=== PATIENT | female | born 1970 | race Caucasian/White ===

== ENCOUNTER 2016-10-09 19:02 | Emergency (ER) | payer OTHER ==
[~2016-10-09] VITALS: Ht 160 cm; Wt 140.0 kg
[~2016-10-09 19:02] MED LIST: AMOXICILLIN/CL875 MG PO; AMOXICILLIN500 MG PO; ANUSOL-HC25 MG RE; CELEBREX200 MG OR; CEPHALEXIN500 MG OR; CIPRO500 MG OR; CIPROFLOXACN500 MG PO; CORTISPORIN OP7.5 ML OP; FISH OIL1360 MG OR; FLEXERIL PO; FLONASE NASAL50 MCG; LEVAQUIN500 MG OR; LEVAQUIN750 MG PO; MAREPA1000 MG OR; METFORMIN500 MG PO; METHIMAZOLE10 MG PO; METOPROL TAR25 MG PO; METOPROL TAR50 MG OR; MULTI VIT OR; NAPROSYN500 MG OR; NAPROXEN500 MG PO; NO MEDS; PAROXETINE20 MG PO; PREDNISONE20 MG PO; PRO-BIOTIC OR; SEA-OMEGA300 MG OR; TAPAZOLE10 MG OR; ULTRAM50 MG OR; ZANAFLEX4 M2 PO; ZITHROMAX250 MG PO
[2016-10-09 19:49] LABS: HEMOGLOBIN 12.6 g/dl (12.0-16.0); IMMATURE GRANULOCYTES 0.4 % (0.0-1.0); MEAN CELL VOLUME 85.9 fL CALC (80.0-100.0); MEAN CORPUSCULAR HGB 30.1 pG CALC (26.0-32.0); NEUT# 6.03 thou/uL (2.00-7.15); RED BLOOD COUNT 4.19 mill/uL (4.20-5.60); RED CELL DISTRI WIDTH 12.3 % (11.5-15.5)
[2016-10-09 20:13] LABS: ALKALINE PHOSPHATASE 85 u/l (38-126); ANION GAP 14 (6-22 (CALC)); BILIRUBIN, TOTAL 0.4 mg/dL (0.0-1.4); BUN 12 mg/dL (7-17); BUN/CREATININE RATIO 21 (12-20 (CALC)); CALCIUM 9.1 mg/dL (8.4-10.2); CARBON DIOXIDE 24 mmol/l (22-30); CHLORIDE 105 mmol/l (95-108); CREATININE 0.6 mg/dL (0.5-1.0); GFR > 60 ML/MIN (>=60 (CALC)); GFR FOR AFR.AMER. > 60 ML/MIN (>=60 (CALC)); GLUCOSE 100 mg/dL (65-105); POTASSIUM 3.5 mmol/l (3.5-5.1); SGOT/AST 26 u/l (14-36); SGPT/ALT 37 u/l (9-52); SODIUM 140 mmol/l (137-146); TOTAL PROTEIN 6.9 g/dL (6.3-8.2)
[2016-10-09] MEDS ORDERED: NAPROSYN500 MG PO (22:32)
[2016-10-09 23:21] VITALS: BP 130/69
== END 2016-10-09 23:22 | disposition home or self-care (01) | DRG 605 ==
LOC: ED 19:02
PROVIDERS: Emergency Medicine
DX: S20.211A Contusion of right front wall of thorax, initial encounter (principal); F41.1 Generalized anxiety disorder; S30.1XXA Contusion of abdominal wall, initial encounter; V43.52XA Car driver injured in collision with other type car in traffic accident, initial encounter; W22.11XA Striking against or struck by driver side automobile airbag, initial encounter; Y92.488 Other paved roadways as the place of occurrence of the external cause; R00.0 Tachycardia, unspecified; R06.82 Tachypnea, not elsewhere classified
CPT/HCPCS: Q9967

== ENCOUNTER 2016-10-16 01:24 | Emergency (ER) | payer OTHER ==
[~2016-10-16] VITALS: Ht 160 cm; Wt 126.4 kg
[~2016-10-16 01:24] MED LIST changes: +NAPROSYN500 MG PO
[2016-10-16] MEDS ORDERED: METOPROLOL50 M1 PO (01:37)
[2016-10-16 03:39] VITALS: BP 138/90
== END 2016-10-16 03:39 | disposition home or self-care (01) | DRG 556 ==
LOC: ED 01:24
DX: M79.604 Pain in right leg (principal); R20.8 Other disturbances of skin sensation

== ENCOUNTER 2017-01-23 21:40 | Observation (INO) | payer SELFPAY ==
[~2017-01-23] VITALS: Ht 160 cm; Wt 60.0 kg
[~2017-01-23 21:40] MED LIST changes: +METOPROLOL50 M1 PO
--- NOTE | 2017-01-23 22:02 | NUR ---
PT BROUGHT STRAIGHT BACK TO ER ROOM 14 VIA WC. EKG COMPLETE. PT CHANGED INTO GOWN.
[2017-01-23 22:24] LABS: HEMATOCRIT 37.2 % (37.0-47.0); HEMOGLOBIN 12.8 g/dl (12.0-16.0); IMMATURE GRANULOCYTES 0.3 % (0.0-1.0); MEAN CELL VOLUME 88.6 fL CALC (80.0-100.0); MEAN CORPUSCULAR HGB 30.5 pG CALC (26.0-32.0); MEAN CORPUSCULAR HGB CONC 34.4 g/L CALC (32.0-36.0); NEUT# 3.66 thou/uL (2.00-7.15); RED BLOOD COUNT 4.2 mill/uL (4.20-5.60); RED CELL DISTRI WIDTH 12.3 % (11.5-15.5)
[2017-01-23 22:37] LABS: ALBUMIN 4.4 g/dL (3.2-5.0); ALKALINE PHOSPHATASE 69 u/l (38-126); ANION GAP 15 (6-22 (CALC)); BILIRUBIN, TOTAL 0.5 mg/dL (0.0-1.4); BUN 11 mg/dL (7-17); BUN/CREATININE RATIO 15 (12-20 (CALC)); CALCIUM 9.5 mg/dL (8.4-10.2); CARBON DIOXIDE 26 mmol/l (22-30); CHLORIDE 104 mmol/l (95-108); CREATININE 0.7 mg/dL (0.5-1.0); GFR > 60 ML/MIN (>=60 (CALC)); GFR FOR AFR.AMER. > 60 ML/MIN (>=60 (CALC)); GLUCOSE 145 mg/dL (65-105); POTASSIUM 3.5 mmol/l (3.5-5.1); SGOT/AST 44 u/l (14-36); SGPT/ALT 69 u/l (9-52); SODIUM 142 mmol/l (137-146)
[2017-01-23 22:50] LABS: MYOGLOBIN 32 ng/mL (0 - 62)
--- NOTE | 2017-01-23 22:52 | NUR ---
PT STATES CHEST PAIN GONE JUST HAS LEFT SHOULDER PAIN.
[2017-01-23 22:57] LABS: URINE BILIRUBIN - DIPSTICK NEGATIVE (NEGATIVE); URINE BLOOD DIPSTICK NEGATIVE (NEGATIVE); URINE CLARITY SLIGHT CLOUDY; URINE COLOR YELLOW; URINE GLUCOSE - DIPSTICK NEGATIVE (NEGATIVE); URINE KETONE NEGATIVE (NEGATIVE); URINE LEUK ESTERASE NEGATIVE (NEGATIVE); URINE NITRITE - DIPSTICK NEGATIVE (Negative); URINE PROTEIN - DIPSTICK NEGATIVE (NEG-TRACE); URINE SPECIFIC GRAVITY 1.015; URINE UROBILINOGEN - DIPSTICK 0.2 E.U./dL (0.2)
[2017-01-23 23:05] LABS: BARBITURATES NEGATIVE (NEGATIVE); COCAINE NEGATIVE (NEGATIVE); METHADONE NEGATIVE (NEGATIVE); OXCYCODONE NEGATIVE (NEGATIVE); TETRAHYDROCANNABIONOL NEGATIVE (NEGATIVE); TRICYLIC ANTIDEPRESSANTS NEGATIVE (NEGATIVE)
[2017-01-23 23:08] LABS: TSH, 3RD GENERATION < 0.02 uIU/mL (0.47 - 4.68)
--- NOTE | 2017-01-23 23:50 | NUR ---
SON AT BEDSIDE, PT CALM NOW., B/P DOWN.
[2017-01-23] MEDS ORDERED: METHIMAZOLE5 MG PO (23:55)
--- NOTE | 2017-01-24 00:35 | NUR ---
TRIED TO GIVE REPORT NURSE WILL CALL BACK
[2017-01-24 00:40] VITALS: BP 149/92
--- NOTE | 2017-01-24 01:29 | NUR ---
REPORT GIVEN TO DIEGO CASILLAS.
--- NOTE | 2017-01-24 01:40 | NUR ---
FROM ER TO [facility] ROOM 262, VIA W/C ACCOMPANIED BY DIEGO LEBLANC. PT ALERT AND ORIENTED X3, STEADY GAIT NOTED WHEN AMBULATED TO STANDING SCALE THEN TO BED, DENIES PAIN OR OTHER DISCOMFORT, NO DISTRESS NOTED, SKIN WARM AND DRY, ACYANOTIC, LUNGS CLEAR BILATERALLY ON AUSCULTATION, RESP ARE EVEN AND UNLABORED, AFEBRILE, VSS, TELE IN PLACE, REFUSED TEDHOSE, PT IS REQUESTING COPY OF ALL LABS RESULTS, EXPLAINED THAT NEEDS TO SIGN A RELEASE FORM AND GET THEM FROM RECORDS DEPT, VOICES UNDERSTANDING, SAFETY MEASURES IN PLACE, STATES HAS BEEN OUT OF MEDICATIONS FOR MONTHS D/T NO INSURANCE, LIVES WITH AND DAUGHTER, CALL ACUNA IN PLACE WILL CONTINUE TO MONITOR.
--- NOTE | 2017-01-24 01:40 | NUR ---
Admission Note Report Given to: DIEGO CASILLAS Transported by: X Wheelchair Stretcher Transported with: X Nurse Transporter X Patent IV O2 X Print Graphic Designer
[2017-01-24 04:10] VITALS: BP 119/54
--- NOTE | 2017-01-24 06:00 | NUR ---
PT RESTING QUIETLY IN BED, DENIES CHEST PAIN, VOICES NO COMPLAINTS OR NEEDS, RESP ARE EVEN AND UNLABORED NO DISTRESS NOTED, WILL CONTINUE TO MONITOR, CALL ACUNA AT REACH.
--- NOTE | 2017-01-24 09:20 | NUR ---
ASSESSMENT IS COMPLETED: IV SITE IS FREE FROM REDNESS OR EDMEA. CONTINUE TO OBSERVE AND MONITOR.
[2017-01-24 09:23] VITALS: BP 137/81
--- NOTE | 2017-01-24 11:00 | NUR ---
IV SITE IS DISCONTINEUD CATHETER. DISCHARGE INSTRUCTIONS GIVEN AND VERBALIZED UNDERSTANDING,
--- NOTE | 2017-01-24 11:24 | NUR ---
Discharge instructions given. Patient verbalizes understanding of same. Discharged in stable condition via Wheelchair to Home with family. All belongings sent with pt.
== END 2017-01-24 11:00 | disposition home or self-care (01) | DRG 313 ==
LOC: ED 21:40 → ED-I 23:00 → ED 23:24 → MS2 23:25
PROVIDERS: Emergency Medicine; Nurse Practitioner Family; ADMIT Internal Medicine; ATTEND Internal Medicine
DX: R07.9 Chest pain, unspecified (principal); E66.01 Morbid (severe) obesity due to excess calories; I10 Essential (primary) hypertension; E05.00 Thyrotoxicosis with diffuse goiter without thyrotoxic crisis or storm; J45.909 Unspecified asthma, uncomplicated; F41.9 Anxiety disorder, unspecified; F32.9 Major depressive disorder, single episode, unspecified; E11.9 Type 2 diabetes mellitus without complications; Z91.14 Patient's other noncompliance with medication regimen; Z79.84 Long term (current) use of oral hypoglycemic drugs; Z87.891 Personal history of nicotine dependence
CPT/HCPCS: G0378

== ENCOUNTER 2017-06-25 21:33 | Emergency (ER) | payer BC ==
[~2017-06-25] VITALS: Ht 160 cm; Wt 136.3 kg
[~2017-06-25 21:33] MED LIST changes: +METHIMAZOLE5 MG PO
[2017-06-25 22:18] LABS: HEMATOCRIT 39.8 % (37.0-47.0); HEMOGLOBIN 13.6 g/dl (12.0-16.0); IMMATURE GRANULOCYTES 0.3 % (0.0-1.0); MEAN CELL VOLUME 92.1 fL CALC (80.0-100.0); MEAN CORPUSCULAR HGB 31.5 pG CALC (26.0-32.0); MEAN CORPUSCULAR HGB CONC 34.2 g/L CALC (32.0-36.0); NEUT# 4.9 thou/uL (2.00-7.15); RED BLOOD COUNT 4.32 mill/uL (4.20-5.60); RED CELL DISTRI WIDTH 12.4 % (11.5-15.5)
[2017-06-25 22:32] LABS: ALBUMIN 4.7 g/dL (3.2-5.0); ALKALINE PHOSPHATASE 65 u/l (38-126); AMYLASE 60 u/l (30-110); ANION GAP 17 (6-22 (CALC)); BILIRUBIN, TOTAL 0.4 mg/dL (0.0-1.4); BUN 11 mg/dL (7-17); BUN/CREATININE RATIO 14 (12-20 (CALC)); CARBON DIOXIDE 24 mmol/l (22-30); CHLORIDE 108 mmol/l (95-108); CREATININE 0.8 mg/dL (0.5-1.0); GFR > 60 ML/MIN (>=60 (CALC)); GFR FOR AFR.AMER. > 60 ML/MIN (>=60 (CALC)); GLUCOSE 106 mg/dL (65-105); LIPASE 93 u/l (23-300); POTASSIUM 4.3 mmol/l (3.5-5.1); SGOT/AST 37 u/l (14-36); SGPT/ALT 45 u/l (9-52); SODIUM 145 mmol/l (137-146); TOTAL PROTEIN 7.8 g/dL (6.3-8.2)
[2017-06-25 22:41] LABS: MYOGLOBIN 24 ng/mL (0 - 62)
[2017-06-25 23:45] VITALS: BP 161/83
== END 2017-06-25 23:50 | disposition left against medical advice (07) | DRG 313 ==
LOC: ED 21:33
PROVIDERS: Emergency Medicine
DX: R07.9 Chest pain, unspecified (principal); Z91.19 Patient's noncompliance with other medical treatment and regimen

== ENCOUNTER 2017-06-30 21:16 | Emergency (ER) | payer BC ==
[~2017-06-30] VITALS: Ht 160 cm; Wt 133.8 kg
[2017-06-30 21:25] VITALS: BP 193/108
== END 2017-06-30 21:55 | disposition left against medical advice (07) | DRG 951 ==
LOC: ED 21:16 → LWOBS 21:55
DX: Z91.19 Patient's noncompliance with other medical treatment and regimen (principal)

== ENCOUNTER 2017-07-02 07:14 | Emergency (ER) | payer BC ==
[~2017-07-02] VITALS: Ht 160 cm; Wt 136.0 kg
[2017-07-02] MEDS ORDERED: PENICILLN VK500 MG PO (07:40)
[2017-07-02 08:06] LABS: HEMATOCRIT 41.9 % (37.0-47.0); HEMOGLOBIN 14.2 g/dl (12.0-16.0); IMMATURE GRANULOCYTES 0.2 % (0.0-1.0); MEAN CELL VOLUME 92.3 fL CALC (80.0-100.0); MEAN CORPUSCULAR HGB 31.3 pG CALC (26.0-32.0); MEAN CORPUSCULAR HGB CONC 33.9 g/L CALC (32.0-36.0); NEUT# 3.97 thou/uL (2.00-7.15); RED BLOOD COUNT 4.54 mill/uL (4.20-5.60); RED CELL DISTRI WIDTH 12.5 % (11.5-15.5)
[2017-07-02 08:25] LABS: ALBUMIN 4.9 g/dL (3.2-5.0); ALKALINE PHOSPHATASE 72 u/l (38-126); ANION GAP 19 (6-22 (CALC)); BILIRUBIN, TOTAL 0.8 mg/dL (0.0-1.4); BUN 12 mg/dL (7-17); BUN/CREATININE RATIO 14 (12-20 (CALC)); CARBON DIOXIDE 25 mmol/l (22-30); CHLORIDE 106 mmol/l (95-108); CREATININE 0.9 mg/dL (0.5-1.0); GFR > 60 ML/MIN (>=60 (CALC)); GFR FOR AFR.AMER. > 60 ML/MIN (>=60 (CALC)); POTASSIUM 3.8 mmol/l (3.5-5.1); SGOT/AST 37 u/l (14-36); SGPT/ALT 48 u/l (9-52); SODIUM 146 mmol/l (137-146); TOTAL PROTEIN 8.1 g/dL (6.3-8.2)
[2017-07-02] MEDS ORDERED: TORADOL PO (08:49)
[2017-07-02 09:00] VITALS: BP 166/75
== END 2017-07-02 09:00 | disposition home or self-care (01) | DRG 313 ==
LOC: ED 07:14
PROVIDERS: Emergency Medicine
DX: R07.89 Other chest pain (principal); E05.00 Thyrotoxicosis with diffuse goiter without thyrotoxic crisis or storm; E11.9 Type 2 diabetes mellitus without complications; F41.9 Anxiety disorder, unspecified; I10 Essential (primary) hypertension

== ENCOUNTER 2018-02-24 22:58 | Emergency (ER) | payer BC ==
[~2018-02-24] VITALS: Ht 160 cm; Wt 131.4 kg
[~2018-02-24 22:58] MED LIST changes: +PENICILLN VK500 MG PO; +TORADOL PO
[2018-02-25 00:02] LABS: HEMATOCRIT 41.1 % (37.0-47.0); HEMOGLOBIN 13.7 g/dl (12.0-16.0); IMMATURE GRANULOCYTES 0.2 % (0.0-5.0); MEAN CELL VOLUME 93.4 fL CALC (80.0-100.0); MEAN CORPUSCULAR HGB 31.1 pG CALC (26.0-32.0); MEAN CORPUSCULAR HGB CONC 33.3 g/L CALC (32.0-36.0); NEUT# 3.85 thou/uL (2.00-7.15); RED BLOOD COUNT 4.4 mill/uL (4.20-5.60); RED CELL DISTRI WIDTH 11.9 % (11.5-15.5)
[2018-02-25 00:14] LABS: ALBUMIN 4.5 g/dL (3.2-5.0); ALKALINE PHOSPHATASE 45 u/l (38-126); ANION GAP 13 (6-22 (CALC)); BILIRUBIN, TOTAL 0.4 mg/dL (0.0-1.4); BUN 14 mg/dL (7-17); BUN/CREATININE RATIO 16 (12-20 (CALC)); CARBON DIOXIDE 26 mmol/l (22-30); CHLORIDE 106 mmol/l (95-108); CREATININE 0.9 mg/dL (0.5-1.0); GFR > 60 ML/MIN (>=60 (CALC)); GFR FOR AFR.AMER. > 60 ML/MIN (>=60 (CALC)); POTASSIUM 4.2 mmol/l (3.5-5.1); SGOT/AST 31 u/l (14-36); SODIUM 140 mmol/l (137-146); TOTAL PROTEIN 7.8 g/dL (6.3-8.2)
[2018-02-25 00:27] LABS: MYOGLOBIN 366 ng/mL (0 - 62)
[2018-02-25 00:45] LABS: TSH, 3RD GENERATION 4.75 uIU/mL (0.47 - 4.68)
[2018-02-25] MEDS ORDERED: METHIMAZOLE10 MG PO (00:46)
[2018-02-25 01:01] VITALS: BP 130/72
== END 2018-02-25 01:01 | disposition home or self-care (01) | DRG 305 ==
LOC: ED 22:58
PROVIDERS: Emergency Medicine
DX: I10 Essential (primary) hypertension (principal); R00.2 Palpitations; R20.0 Anesthesia of skin; E11.9 Type 2 diabetes mellitus without complications; R51 Headache; E05.00 Thyrotoxicosis with diffuse goiter without thyrotoxic crisis or storm

== ENCOUNTER 2020-01-01 06:50 | Emergency (ER) | payer SELFPAY ==
[~2020-01-01] VITALS: Ht 160 cm; Wt 140.9 kg
[2020-01-01] MEDS ORDERED: METOPROLOL SUCC50 MG PO (07:41)
[2020-01-01 07:51] LABS: HEMATOCRIT 39.1 % (37.0-47.0); HEMOGLOBIN 12.5 g/dl (12.0-16.0); IMMATURE GRANULOCYTES 0.5 % (0.0-5.0); MEAN CELL VOLUME 93.8 fL CALC (80.0-100.0); NEUT# 3.43 thou/uL (2.00-7.15); RED BLOOD COUNT 4.17 mill/uL (4.20-5.60); RED CELL DISTRI WIDTH 12.7 % (11.5-15.5)
[2020-01-01 08:10] LABS: ALBUMIN 4.1 g/dL (3.2-5.0); ALKALINE PHOSPHATASE 45 u/l (38-126); ANION GAP 13 (6-22 (CALC)); BUN 15 mg/dL (7-17); BUN/CREATININE RATIO 21 (12-20 (CALC)); CARBON DIOXIDE 24 mmol/l (22-30); CHLORIDE 105 mmol/l (95-108); CPK 78 u/l (30-165); CREATININE 0.7 mg/dL (0.5-1.0); ETHYL ALCOHOL 0 mg/dl (0-30); GFR > 60 ML/MIN (>=60 (CALC)); GFR FOR AFR.AMER. > 60 ML/MIN (>=60 (CALC)); LIPASE 111 u/l (23-300); MAGNESIUM 1.9 mg/dL (1.6-2.3); POTASSIUM 4.1 mmol/l (3.5-5.1); SGOT/AST 50 u/l (14-36); SODIUM 137 mmol/l (137-146); TOTAL PROTEIN 7.1 g/dL (6.3-8.2)
[2020-01-01 08:16] LABS: URINE BILIRUBIN - DIPSTICK NEGATIVE (NEGATIVE); URINE BLOOD DIPSTICK NEGATIVE (NEGATIVE); URINE COLOR YELLOW; URINE GLUCOSE - DIPSTICK NEGATIVE (NEGATIVE); URINE KETONE NEGATIVE (NEGATIVE); URINE LEUK ESTERASE NEGATIVE (NEGATIVE); URINE NITRITE - DIPSTICK NEGATIVE (Negative); URINE PROTEIN - DIPSTICK NEGATIVE (NEG-TRACE); URINE SPECIFIC GRAVITY 1.025; URINE UROBILINOGEN - DIPSTICK 0.2 E.U./dL (0.2)
[2020-01-01 08:16] LABS: GFR > 60 ML/MIN (>=60 (CALC)); GFR FOR AFR.AMER. > 60 ML/MIN (>=60 (CALC))
[2020-01-01 08:18] LABS: BILIRUBIN, TOTAL 0.6 mg/dL (0.0-1.4)
[2020-01-01 08:29] LABS: ACT PARTIAL THROMBO TIME 23.4 SECONDS (20.0-32.5); PROTHROMBIN TIME 10.1 SECONDS (9.0-12.5)
[2020-01-01 08:41] LABS: TSH, 3RD GENERATION 2.5 uIU/mL (0.47 - 4.68)
[2020-01-01 09:19] VITALS: BP 148/75
== END 2020-01-01 09:16 | disposition left against medical advice (07) | DRG 69 ==
LOC: ED 06:50
DX: G45.9 Transient cerebral ischemic attack, unspecified (principal); E11.9 Type 2 diabetes mellitus without complications; I10 Essential (primary) hypertension; F41.9 Anxiety disorder, unspecified; E05.00 Thyrotoxicosis with diffuse goiter without thyrotoxic crisis or storm; Z91.19 Patient's noncompliance with other medical treatment and regimen; Z11.59 Encounter for screening for other viral diseases

== ENCOUNTER 2021-11-09 19:51 | Emergency (ER) | payer OTHER ==
[~2021-11-09] VITALS: Ht 160 cm; Wt 131.0 kg
[~2021-11-09 19:51] MED LIST changes: +METOPROLOL SUCC50 MG PO
[2021-11-09 20:26] VITALS: BP 170/83
[2021-11-09 20:29] VITALS: BP 165/80
[2021-11-09 20:45] VITALS: BP 165/80
[2021-11-09] MEDS ORDERED: VOLTAREN75 MG PO (21:20)
== END 2021-11-09 21:00 | disposition home or self-care (01) | DRG 558 ==
LOC: ED 19:51
DX: M77.8 Other enthesopathies, not elsewhere classified (principal); E05.90 Thyrotoxicosis, unspecified without thyrotoxic crisis or storm; E11.9 Type 2 diabetes mellitus without complications; I10 Essential (primary) hypertension; F41.9 Anxiety disorder, unspecified

== ENCOUNTER 2022-04-12 15:26 | Emergency (ER) | payer OTHER ==
[~2022-04-12 15:26] MED LIST changes: +VOLTAREN75 MG PO
== END 2022-04-12 16:21 | disposition home or self-care (01) | DRG 951 ==
LOC: ED 15:26 → LWOBS 16:21
DX: Z53.21 Procedure and treatment not carried out due to patient leaving prior to being seen by health care provider (principal)

== ENCOUNTER 2023-06-20 15:42 | Emergency (ER) | payer BC ==
[~2023-06-20] VITALS: Ht 160 cm; Wt 131.5 kg
[2023-06-20 15:56] VITALS: BP 162/95
[2023-06-20 16:00] VITALS: BP 164/86
[2023-06-20] MEDS ORDERED: ASPIRIN 81 MG/TAB PO ONE (16:10)
[2023-06-20] MEDS ORDERED: Pantoprazole Sodium 40 MG VIAL (Protonix) IV ONE (16:15)
[2023-06-20 16:30] VITALS: BP 140/79
[2023-06-20 16:32] LABS: BASO% 0.7 % (0-3); EOS% 1.2 % (0-8); HEMATOCRIT 40.6 % (37.0-47.0); HEMOGLOBIN 13.5 g/dl (12.0-16.0); IMMATURE GRANULOCYTES 0.1 % (0.0-5.0); LYMPH% 33.9 % (15-41); MEAN CELL VOLUME 92.1 fL CALC (80.0-100.0); MEAN CORPUSCULAR HGB 30.6 pG CALC (26.0-32.0); MEAN CORPUSCULAR HGB CONC 33.3 g/dL CAL (32.0-36.0); MONO% 5.4 % (2-13); NEUT# 4.03 thou/uL (2.00-7.15); NEUT% 58.7 % (42-76); RED BLOOD COUNT 4.41 mill/uL (4.20-5.60)
[2023-06-20 16:47] LABS: ALBUMIN 4.6 g/dL (3.2-5.0); ALKALINE PHOSPHATASE 58 u/l (38-126); ANION GAP 13 (6-22 (CALC)); BILIRUBIN, TOTAL 0.5 mg/dL (0.02-1.3); BUN 16 mg/dL (7-17); BUN/CREATININE RATIO 18 (12-20 (CALC)); CARBON DIOXIDE 26 mmol/l (22-30); CHLORIDE 105 mmol/l (95-108); CREATININE 0.9 mg/dL (0.5-1.0); GFR FOR AFR.AMER. > 60 ML/MIN (>=60 (CALC)); GFR OTHER RACES > 60 ML/MIN (>=60 (CALC)); LIPASE 125 u/l (23-300); POTASSIUM 3.8 mmol/l (3.5-5.1); SODIUM 141 mmol/l (137-146)
[2023-06-20 16:51] LABS: SGOT/AST 132 u/l (14-36)
[2023-06-20 16:55] LABS: D-DIMER 0.23 mg/L (0.19-0.60)
[2023-06-20 17:00] VITALS: BP 143/85
[2023-06-20 17:00] LABS: ACT PARTIAL THROMBO TIME 22.7 SECONDS (20.0-32.5); PROTHROMBIN TIME 9.8 SECONDS (9.0-12.5)
[2023-06-20 17:30] VITALS: BP 135/79
[2023-06-20 18:18] LABS: URINE BILIRUBIN - DIPSTICK Negative (NEGATIVE); URINE BLOOD DIPSTICK Moderate (NEGATIVE); URINE GLUCOSE - DIPSTICK Negative (NEGATIVE); URINE KETONE Negative (NEGATIVE); URINE LEUK ESTERASE Negative (NEGATIVE); URINE NITRITE - DIPSTICK Negative (Negative); URINE PH 5.5 (4.5-8.0); URINE PROTEIN - DIPSTICK Negative (NEG-TRACE); URINE SPECIFIC GRAVITY 1.015; URINE UROBILINOGEN - DIPSTICK 0.2 E.U./dL (0.2)
[2023-06-20 18:30] LABS: URINE COLOR Yellow; URINE RBC 0-2 RBC/hpf (0-5)
[2023-06-20 19:23] VITALS: BP 135/79
== END 2023-06-20 19:31 | disposition home or self-care (01) | DRG 443 ==
LOC: ED 15:42
PROVIDERS: Emergency Medicine
DX: K76.0 Fatty (change of) liver, not elsewhere classified (principal); I10 Essential (primary) hypertension; E11.9 Type 2 diabetes mellitus without complications; E05.00 Thyrotoxicosis with diffuse goiter without thyrotoxic crisis or storm; Z86.16 Personal history of COVID-19
CPT/HCPCS: S0164

== ENCOUNTER 2023-12-07 15:08 | Observation (INO) | payer OTHER ==
[~2023-12-07] VITALS: Ht 160 cm; Wt 147.4 kg
[2023-12-07] VITALS (8 sets, daily range): BP systolic 129–187; BP diastolic 69–99
[~2023-12-07 15:08] MED LIST changes: +METFORMIN HCL1000 MG PO
--- NOTE | 2023-12-07 15:09 | NUR ---
PATIENT TO ROOM 13 VIA WHEELCHAIR
[2023-12-07 15:45] LABS: BASO% 0.6 % (0-3); EOS% 1.6 % (0-8); HEMATOCRIT 38.7 % (37.0-47.0); HEMOGLOBIN 13.1 g/dl (12.0-16.0); IMMATURE GRANULOCYTES 0.5 % (0.0-5.0); MEAN CELL VOLUME 93.3 fL CALC (80.0-100.0); MEAN CORPUSCULAR HGB 31.6 pG CALC (26.0-32.0); MEAN CORPUSCULAR HGB CONC 33.9 g/dL CAL (32.0-36.0); MONO% 5.6 % (2-13); NEUT# 3.58 thou/uL (2.00-7.15); NEUT% 55.7 % (42-76); RED BLOOD COUNT 4.15 mill/uL (4.20-5.60); RED CELL DISTRI WIDTH 11.8 % (11.5-15.5)
[2023-12-07 15:59] LABS: ALBUMIN 4.4 g/dL (3.2-5.0); ALKALINE PHOSPHATASE 53 u/l (38-126); ANION GAP 10 (6-22 (CALC)); BUN 12 mg/dL (7-17); BUN/CREATININE RATIO 15 (12-20 (CALC)); CALCULATED LDLCHOLESTEROL 127 mg/dL (62-129 (CALC)); CARBON DIOXIDE 25 mmol/l (22-30); CHLORIDE 108 mmol/l (95-108); CHOLESTEROL HDL RATIO 5.1 (<4.4 (CALC)); CREATININE 0.8 mg/dL (0.5-1.0); ESTIMATED GFR 89 ML/MIN (>=90 (CALC)); HDL CHOLESTEROL 45 mg/dL (39.0-59.0); POTASSIUM 4.1 mmol/l (3.5-5.1); PROTHROMBIN TIME 9.9 SECONDS (9.0-12.5); SGOT/AST 103 u/l (14-36); SODIUM 139 mmol/l (137-146); TOTAL CHOLESTEROL 228 mg/dl (0-199); TOTAL PROTEIN 7.9 g/dL (6.3-8.2); TOTAL TRIGLYCERIDES 282 mg/dl (0-149); VLDL CHOLESTROL 56 mg/dl (2-49 (CALC))
[2023-12-07 16:00] LABS: BILIRUBIN, TOTAL 0.6 mg/dL (0.02-1.3)
[2023-12-07 16:33] LABS: URINE BILIRUBIN - DIPSTICK Negative (NEGATIVE); URINE BLOOD DIPSTICK Small (NEGATIVE); URINE GLUCOSE - DIPSTICK Negative (NEGATIVE); URINE KETONE Negative (NEGATIVE); URINE LEUK ESTERASE Negative (NEGATIVE); URINE NITRITE - DIPSTICK Negative (Negative); URINE PROTEIN - DIPSTICK Negative (NEG-TRACE); URINE UROBILINOGEN - DIPSTICK 0.2 E.U./dL (0.2)
[2023-12-07 16:35] LABS: URINE COLOR Yellow; URINE SQUAMOUS EPITHELIAL CELL FEW EPI/hpf (0-FEW); URINE WBC 0-2 WBC/hpf (0-5)
[2023-12-07] MEDS ORDERED: ACETAMINOPHEN 325 MG/TAB PO PRN (18:00)
[2023-12-07] MEDS ORDERED: LOPRESSOR 550 MG/TAB PO (19:23)
--- NOTE | 2023-12-07 19:36 | NUR ---
PT IS SITTING UP AT BEDSIDE. DENIES PAIN. ADVISED OF ADMISSION AND WAIT TIME TO GET PT UPSTAIRS. NO C/O AT THIS TIME.
[2023-12-07] MEDS ORDERED: MAGNESIUM HYDROXIDE 30 ML UDC PO PRN (20:00)
--- NOTE | 2023-12-07 20:01 | NUR ---
PT APPARENTLY HAD REFUSED THE BLOOD DRAW. PT REQUESTING TO LEAVE AMA. WILL FOLLOW UP WITH HER DOCTOR IN THE MORNING. IV SITE REMOVED/DRESSED. PT SIGNED AMA. LEFT AMBULATORY. Patient decides to leave AMA. Multiple attempts made to ecourage patient to remain here for continued treatment. Explained to patient all risks of leaving against medical advice including . Pt verbalized understanding of all risks. Pt also encouraged to return to [facility] at any time, especially if symptoms continue or become worse. Pt verbalized understanding.
[2023-12-07] MEDS ORDERED: ATORVASTATIN CALCIUM 40 MG/TAB PO SCH (21:00)
[2023-12-07] MEDS ORDERED: metFORMIN HYDROCHLORIDE 500 MG/TAB PO SCH (21:00)
[2023-12-07] MEDS ORDERED: ENOXAPARIN SODIUM 40 MG/0.4 ML SYR SC SCH (21:00)
[2023-12-07] MEDS ORDERED: METOPROLOL TARTRATE 50 MG/TAB PO SCH (21:00)
[2023-12-08] MEDS ORDERED: ASPIRIN EC 81 MG/TAB PO SCH (09:00)
== END 2023-12-07 20:01 | disposition left against medical advice (07) | DRG 313 ==
LOC: ED 15:08 → ED-I 19:00 → ED 19:09 → MS2 19:10
PROVIDERS: Family Medicine; ADMIT Internal Medicine; ATTEND Internal Medicine
DX: R07.9 Chest pain, unspecified (principal); R20.2 Paresthesia of skin; I10 Essential (primary) hypertension; E11.9 Type 2 diabetes mellitus without complications; E66.01 Morbid (severe) obesity due to excess calories; E05.90 Thyrotoxicosis, unspecified without thyrotoxic crisis or storm; F41.9 Anxiety disorder, unspecified; Z91.041 Radiographic dye allergy status; Z86.16 Personal history of COVID-19

== ENCOUNTER 2023-12-12 04:54 | Emergency (ER) | payer OTHER ==
[~2023-12-12] VITALS: Ht 160 cm; Wt 147.0 kg
[~2023-12-12 04:54] MED LIST changes: +LOPRESSOR 550 MG/TAB PO
[2023-12-12 05:02] VITALS: BP 150/80
[2023-12-12 05:16] VITALS: BP 132/71
[2023-12-12 05:41] LABS: BASO% 0.5 % (0-3); EOS% 1.8 % (0-8); HEMATOCRIT 36.8 % (37.0-47.0); HEMOGLOBIN 12.4 g/dl (12.0-16.0); IMMATURE GRANULOCYTES 0.3 % (0.0-5.0); LYMPH% 37.3 % (15-41); MEAN CELL VOLUME 92.7 fL CALC (80.0-100.0); MEAN CORPUSCULAR HGB 31.2 pG CALC (26.0-32.0); MEAN CORPUSCULAR HGB CONC 33.7 g/dL CAL (32.0-36.0); MONO% 7.2 % (2-13); NEUT# 3.43 thou/uL (2.00-7.15); NEUT% 52.9 % (42-76); RED BLOOD COUNT 3.97 mill/uL (4.20-5.60); RED CELL DISTRI WIDTH 11.8 % (11.5-15.5)
[2023-12-12 05:46] VITALS: BP 137/72
[2023-12-12 06:16] LABS: BILIRUBIN, TOTAL 0.4 mg/dL (0.02-1.3); CREATININE 0.8 mg/dL (0.5-1.0); MAGNESIUM 1.8 mg/dL (1.6-2.3); TOTAL PROTEIN 7.1 g/dL (6.3-8.2)
[2023-12-12 08:37] VITALS: BP 137/72
== END 2023-12-12 08:33 | disposition home or self-care (01) | DRG 156 ==
LOC: ED 04:54
PROVIDERS: Family Medicine
DX: H92.02 Otalgia, left ear (principal); M54.2 Cervicalgia; R93.0 Abnormal findings on diagnostic imaging of skull and head, not elsewhere classified; I10 Essential (primary) hypertension; E05.00 Thyrotoxicosis with diffuse goiter without thyrotoxic crisis or storm; F41.9 Anxiety disorder, unspecified; E66.01 Morbid (severe) obesity due to excess calories; Z86.16 Personal history of COVID-19; Z20.822 Contact with and (suspected) exposure to COVID-19